=== PATIENT | female | born 1990 | race Caucasian/White ===

== ENCOUNTER 2018-05-27 21:02 | Emergency (ER) | payer OTHER ==
[~2018-05-27] VITALS: Ht 172.7 cm; Wt 126.5 kg
[2018-05-27] MEDS ORDERED: CHILDREN'S ASPI81 M1 PO (21:23)
[2018-05-27] MEDS ORDERED: SERTRALINE HCL50 MG PO (21:23)
[2018-05-27 21:41] VITALS: BP 139/71
== END 2018-05-27 21:41 | disposition home or self-care (01) ==
LOC: M.ERS 21:02
DX: O26.899 Other specified pregnancy related conditions, unspecified trimester (principal); M25.512 Pain in left shoulder; M54.2 Cervicalgia; Z3A.00 Weeks of gestation of pregnancy not specified; Z88.8 Allergy status to other drugs, medicaments and biological substances